=== PATIENT | female | born 1955 | race Caucasian/White ===

== ENCOUNTER 2019-08-15 06:04 | Day surgery (SDC) | payer OTHER ==
[2019-08-15] VITALS (12 sets, daily range): BP systolic 117–153; BP diastolic 61–78
[~2019-08-15] VITALS: Ht 162.6 cm; Wt 72.6 kg
[2019-08-15] MEDS ORDERED: ASPIRIN81 MG ORAL (06:38)
[2019-08-15] MEDS ORDERED: LOSARTAN-HCTZ1 EAC1 ORAL (06:38)
[2019-08-15] MEDS ORDERED: LR 1000ml 1,000 ML IVLG SCH (06:51)
--- NOTE | 2019-08-15 06:52 | Anethesia Preoperative Eval ---
Anesthesia Pre-op PMH/ROS General Date of Evaluation: Aug 15, 2019 Time of Evaluation: 07:16 Anesthesiologist: Sven ASA Score: ASA 3 Mallampati Score Class I : Soft palate, uvula, fauces, pillars visible Class II: Soft palate, uvula, fauces visible Class III: Soft palate, base of uvula visible Class IV: Only hard plate visible Mallampati Classification: Class II Surgeon: Alexandr Diagnosis: R Knee Pain Surgical Procedure: R Knee Arthroscopy Anesthesia History: none Family History: no anesthesia problems Allergies: Coded Allergies: No Known Allergies (Unverified , 08/15/19) Medications: see eMAR Patient NPO?: Yes Past Medical History Cardiovascular: Reports: HTN, other - HL Gastrointestinal/Genitourinary: Reports: other - L Breast CA Anesthesia Pre-op Phys. Exam Physician Exam Last Vital Signs Date Time Temp Pulse Resp B/P (MAP) Pulse Ox O2 Delivery O2 Flow Rate FiO2 08/15/19 06:46 Room Air 08/15/19 06:36 97.7 62 18 153/64 100 Constitutional: NAD Neurologic: CN 2-12 intact Cardiovascular: RRR Respiratory: CTA Gastrointestinal: S/NT/ND Airway Exam Mallampati Score: Class II MO: limited ROM: limited Teeth: intact Anesthesia Pre-op A/P Risk Assessment & Plan Assessment: ASA 3 Plan: GA, SED Status Change Before Surgery: No Pre-Antibiotics Dru Gram Ancef IV Given Within 1 Hr of Incision: Yes Time Given: 07:31 Vladislav Machuca MD Aug 15, 2019 06:52
[2019-08-15] MEDS ORDERED: Lidocaine 1% MPF 10mg/ml 5ml ONE (06:59)
[2019-08-15] MEDS ORDERED: Sodium Chloride 10ml vial INJ ONE (06:59)
[2019-08-15] MEDS ORDERED: Propofol 200mg/20ml IV ONE (06:59)
[2019-08-15] MEDS ORDERED: Dexamethasone 4mg/ml vial ONE (06:59)
[2019-08-15] MEDS ORDERED: fentaNYL 100 mcg/2 mL IV ONE (07:00)
[2019-08-15] MEDS ORDERED: Labetalol 5mg/ml 20ml vial IV PRN (07:00)
[2019-08-15] MEDS ORDERED: fentaNYL 100 mcg/2 mL IV PRN (07:00)
[2019-08-15] MEDS ORDERED: HYDROcodone/Acetamin 5/325 tab ORAL PRN ×2 (07:00→15:01)
[2019-08-15] MEDS ORDERED: Metoclopramide 10mg/2ml Inj IVP PRN (07:00)
[2019-08-15] MEDS ORDERED: LORazepam Inj 2mg/ml 1ml IV PRN (07:00)
[2019-08-15] MEDS ORDERED: DiphenhydrAMINE 50mg/ml Inj IVP PRN (07:00)
[2019-08-15] MEDS ORDERED: Atropine Sulfate 0.4mg/ml inj IVP PRN (07:00)
[2019-08-15] MEDS ORDERED: Midazolam 2mg/2ml Inj IVP PRN (07:00)
[2019-08-15] MEDS ORDERED: oxyCODONE HCL/Acetaminophen 5/325mg ORAL PRN (07:00)
[2019-08-15] MEDS ORDERED: HYDROcodone/Acetamin 7.5/325 tab ORAL PRN (07:00)
[2019-08-15] MEDS ORDERED: Ketorolac 30mg Inj IV PRN ×2 (07:00)
[2019-08-15] MEDS ORDERED: Hydromorphone 0.5mg/0.5ml inj IVP PRN (07:00)
[2019-08-15] MEDS ORDERED: Acetaminophen (Non formulary) 100 ML IV ONE (07:00)
[2019-08-15] MEDS ORDERED: Meperidine 50mg/ml Inj(FOR RIGORS ONLY) IVP PRN (07:00)
[2019-08-15] MEDS ORDERED: EPINEPHrine 1mg/1ml Amp ONE (07:01)
--- NOTE | 2019-08-15 07:02 | Pre-Procedure Note/Attestation ---
Pre-Procedure Note/Attestation Complete Prior to Procedure Planned Procedure: right Procedure Narrative: Right knee arthroscopy with partial menisectomy Indications for Procedure Pre-Operative Diagnosis: Right knee meniscus tear Attestation I attest that I discussed the nature of the procedure; its benefits; risks and complications; and alternatives (and the risks and benefits of such alternatives ), prior to the procedure, with the patient (or the patient's legal risk control representative). I attest that, if there was a reasonable possibility of needing a blood transfusion, the patient (or the patient's legal risk control representative) was given the [facility] standardized written summary, pursuant to the [place] Blood Safety Act ([place] Health and Safety Code # 1645, as amended). I attest that I re-evaluated the patient just prior to the surgery and that there has been no change in the patient's H&P, except as documented below: Juan Strange MD Aug 15, 2019 07:02
[2019-08-15] MEDS ORDERED: LR 1000ml ONE (07:16)
[2019-08-15] MEDS ORDERED: NS Irrig 1000ml ONE (07:16)
[2019-08-15] MEDS ORDERED: Sterile Water Irrig 1000ml IRRIG ONE (07:16)
[2019-08-15] MEDS ORDERED: NS Irrig 4000ml IRRIG ONE ×2 (07:34→07:49)
--- NOTE | 2019-08-15 07:42 | Immediate Post-Op Evaluation ---
Immediate Post-Op Evalulation Immediate Post-Op Evalulation Procedure: R Knee Arthroscopy Date of Evaluation: Aug 15, 2019 Time of Evaluation: 08:37 IV Fluids: 500 LR Blood Products: 0 Estimated Blood Loss: 7 Urinary Output: 0 Blood Pressure Systolic: 133 Blood Pressure Diastolic: 65 Pulse Rate: 63 Respiratory Rate: 16 O2 Sat by Pulse Oximetry: 100 Temperature (Fahrenheit): 97.2 Pain Score (1-10): 2 Nausea: No Vomiting: No Complications 0 Patient Status: awake, reacts, patent, extubated, none Hydration Status: adequate Dru Gram Ancef IV Given Within 1 Hr of Incision: Yes Time Given: 07:16 Vladislav Machuca MD Aug 15, 2019 07:42
--- NOTE | 2019-08-15 07:45 | 48 Hour Post Anesthesia Eval ---
Post Anesthesia Evaluation Procedure: R Knee Arthroscopy Date of Evaluation: Aug 15, 2019 Time of Evaluation: 10:46 Blood Pressure Systolic: 153 0: 65 Pulse Rate: 62 Respiratory Rate: 18 Temperature (Fahrenheit): 97.4 O2 Sat by Pulse Oximetry: 100 Airway: patent Nausea: No Vomiting: No Pain Intensity: 2 Hydration Status: adequate Cardiopulmonary Status: Stable Mental Status/LOC: patient returned to baseline Follow-up Care/Observations: 0 Post-Anesthesia Complications: 0 Follow-up care needed: ready to discharge Vladislav Machuca MD Aug 15, 2019 07:45
[2019-08-15] MEDS ORDERED: ePHEDrine 50mg/ml Inj ONE (07:56)
--- NOTE | 2019-08-15 08:33 | Brief Operative Note ---
Immediate Post Operative Note Operative Note Pre-op Diagnosis: Right knee meniscus tear Procedure: Right knee arthroscopy with partial lateral menisectomy Post-op Diagnosis: same as pre-op Findings: consistent w/pre-op dx studies Surgeon: Alexandr Anesthesiologist: Sven Anesthesia: general, local Specimen: none Complications: none Condition: stable Fluids: 100 ml Estimated Blood Loss: none Drains: none Implant(s) used?: No Juan Strange MD Aug 15, 2019 08:33
--- NOTE | 2019-08-15 14:45 | Operative Note - Dictated ---
DATE OF OPERATION: 08/15/2019 SURGEON: Juan Strange M.D. [employer] SUPERVISOR: None. ANESTHESIA: General plus local. COMPLICATIONS: None. ANTIBIOTICS: Ancef. PREOPERATIVE DIAGNOSIS: Right knee lateral meniscus tear. POSTOPERATIVE DIAGNOSIS: Right knee lateral meniscus tear. PROCEDURE PERFORMED: Right knee arthroscopy with partial lateral meniscectomy. BACKGROUND: The patient has a long-standing right knee pain refractory to all nonoperative management. All risks, benefits, and alternatives to surgical intervention were discussed in great detail. Risks included, but are not limited to, bleeding, infection, neurovascular injury, need for additional surgical intervention, failure of pain relief, arthrofibrosis, complications of anesthesia, blood clots, stroke, heart attack, and potentially . She understood these risks, amongst others, and consent was signed. PROCEDURE IN DETAIL: The patient was brought into the operating room, placed supine on the operating room table. The right knee was correctly verified for surgical site and prepped and draped in standard sterile fashion. Examination under anesthesia revealed symmetric range of motion with the contralateral side, no laxity, and no effusion. Anterolateral and anteromedial portals were marked and injected with 20 mL of 0.25% Marcaine with epinephrine. A diagnostic arthroscopy was then undertaken. It revealed the followin. Normal suprapatellar pouch. 2. Normal patellofemoral articulation. 3. Normal medial gutter. 4. Normal lateral gutter. 5. Normal lateral compartment. 6. Normal medial compartment. 7. Chronically ruptured ACL. 8. Normal PCL. 9. Normal medial meniscus. 10. Middle horn lateral meniscus tear (longitudinal). 11. Normal popliteus fossa. All normal structures were tested with a probe and an up biter, left biter, right biter, and 4.5 mm shaver were used to resect the lateral meniscus tear to a stable border. After resection was tested with a probe and found to be stable. All fluid and debris were evacuated from the knee. A 10 mL of 0.25% Marcaine with epinephrine were injected. Copious irrigation was utilized and the wounds were reapproximated using 4-0 Monocryl subcuticular fashion. Steri-Strips were used over Mastisol. Dry sterile dressing was applied. A compressive stocking was fitted. There were no complications. I attest that I performed the entire operation. She was transferred to recovery in good condition. Juan Strange M.D. DR: MAGO JOB#: [id number] CC:
[2019-08-15] MEDS ORDERED: Hydromorphone 0.5mg/0.5ml inj SUBQ PRN (15:01)
[2019-08-15] MEDS ORDERED: Tylenol #3 tab (300mg/30mg) ORAL PRN (15:01)
[2019-08-15] MEDS ORDERED: D5 1/2NS 1,000 ML IV SCH (15:01)
== END 2019-08-15 10:05 | disposition home or self-care (01) ==
LOC: SUR 06:04
DX: S83.281A Other tear of lateral meniscus, current injury, right knee, initial encounter (principal); I10 Essential (primary) hypertension; Z85.3 Personal history of malignant neoplasm of breast; X58.XXXA Exposure to other specified factors, initial encounter; Y92.9 Unspecified place or not applicable
CPT/HCPCS: 29881; J0171; J0690; J1100; J2250; J2405; J2704; J3010; J7120; 94003; 94150